=== PATIENT | male | born 1975 | race Two or more races ===

== ENCOUNTER 2023-03-05 16:36 | Outpatient (REF) | payer SELFPAY ==
[2023-03-05 17:12] LABS: Hemoglobin A1C* 9.46 % (0-5.6)
[2023-03-08 10:16] LABS: Fecal Occult Blood* Negative (Negative)
[2023-09-13 19:56] LABS: Hemoglobin A1C* 10.1 % (0-5.6)
== END 2023-03-05 16:37 | disposition home or self-care (01) ==
LOC: NPLBCLIENT 16:36
PROVIDERS: PCP Nurse Practitioner Family; Visit Provider Nurse Practitioner Family
DX: E11.65 Type 2 diabetes mellitus with hyperglycemia (principal)
CPT/HCPCS: 36415; 82270; 83036